=== PATIENT | male | born 1950 | race Caucasian/White ===

== ENCOUNTER 2022-09-04 14:41 | Emergency (ER) | payer OTHER, BC ==
[2022-09-04 15:05] VITALS: BP 153/76; PULSE 76; RESP 20; TEMP 98.9; BMI 25.0
== END 2022-09-04 16:30 | disposition home or self-care (01) ==
LOC: FER 14:41
DX: R04.0 Epistaxis (principal)
CPT/HCPCS: 99281-25

== ENCOUNTER 2022-09-05 10:03 | Emergency (ER) | payer OTHER, BC ==
[2022-09-05 10:24] VITALS: BP 141/76; PULSE 68; RESP 16; TEMP 97.8; BMI 25.0
== END 2022-09-05 11:15 | disposition home or self-care (01) ==
LOC: FER 10:03
DX: R04.0 Epistaxis (principal)
CPT/HCPCS: 99281-25